=== PATIENT | female | born 1975 | race Caucasian/White ===

== ENCOUNTER 2022-03-31 06:45 | Observation (INO) ==
--- NOTE | 2022-03-29 08:51 | Anesthesiology Consultation ---
Date of Service March 29, 2022 Assessment & Plan (1) Encounter for pre-operative examination: - COVID screening: Per assessment on 03/28: No known COVID-19 positive contacts or current COVID-19 related symptoms. Travel screen negative. Patient vaccinated. At surgeon discretion if preop Covid testing being done. - Check test AM DOS - Preop labs: No recent BMP. Will order BMP AM DOS. Chart Review Chart Review: Acceptable Risk for Surgery and Patient NOT seen in Pre Admission Testing History Surgery Operation Date: 03/31/22 08:20 Proposed Procedures p Total Laparoscopic Hysterectomy, Right Salpingectomy - Ronaldo Velasquez MD Height/Weight Height: 5 ft Weight: 72.575 kg Allergies Allergy/AdvReac Type Severity Reaction Status Date / Time No Known Allergies Allergy Verified 04/09/16 22:18 Medications Home Medications Medication Instructions Recorded Confirmed Last Taken levothyroxine 125 mcg tablet 125 mcg PO QAM 03/28/22 03/28/22 Unknown lisinopril 5 mg tablet 5 mg PO QAM 03/28/22 03/28/22 Unknown Past Medical History Medical History (Updated 03/29/22 @ 08:49 by Kristy Pedroza) Endometriosis History of anemia History of COVID-19 04/2021>RESOLVED Hypertension Hypothyroidism Tubal HX Past Family History Family History (Updated 03/28/22 @ 12:16 by Hansa Ramirez RN) Other No family history of adverse response to anesthesia Past Surgical History Surgical History (Updated 03/28/22 @ 12:16 by Hansa Ramirez RN) History of bilateral tubal ligation History of section X 3 History of dilatation and curettage History of laparoscopy MULTIPLE History of left salpingo-oophorectomy [place] teeth removed Social History Smoking Status: Never smoker Hx Alcohol Use: Yes alcohol intake frequency: holidays/special occasions only substance use type: does not use Testing Laboratory Results 03/28/22 WBC 8.45 H/H 13.8/43.3 PLATELETS 298
[~2022-03-31 06:45] MED LIST: LACTATED RINGER'S 1,000 ML IV SCH; ceFAZolin 2000MG 2,000 MG/15 ML SYR IV SCH
[2022-03-31] MEDS ORDERED: NEOSTIGMINE METHYLSULFATE 1 MG/ML 10ML VIAL ONE (07:15)
[2022-03-31] MEDS ORDERED: DEXAMETHASONE SOD INJ 4 MG/ML VIAL ONE (07:15)
[2022-03-31] MEDS ORDERED: PROPOFOL IV EMULSION 10 MG/ML 20 ML VIAL IV ONE (07:15)
[2022-03-31] MEDS ORDERED: LIDOCAINE 2% MPF LOCAL 5 ML VIAL INFIL ONE (07:15)
[2022-03-31] MEDS ORDERED: ROCURONIUM BROMIDE 10 MG/ML 5 ML VIAL IV ONE (07:15)
[2022-03-31] MEDS ORDERED: fentaNYL citrate 100 MCG/2 ML VIAL ONE (07:15)
[2022-03-31] MEDS ORDERED: KETOROLAC 30 MG/ML VIAL ONE (07:15)
[2022-03-31] MEDS ORDERED: MIDAZOLAM HCL 1 MG/ML 2ML VIAL ONE (07:15)
[2022-03-31] MEDS ORDERED: GLYCOPYRROLATE 0.2 MG/ML VIAL ONE (07:15)
[2022-03-31] MEDS ORDERED: ACETAMINOPHEN 1000 MG/100 ML IV IV ONE (07:50)
[2022-03-31] MEDS ORDERED: ATROPINE SULFATE 0.1 MG/ML 10ML SYR IV PRN (08:02)
[2022-03-31] MEDS ORDERED: ePHEDrine sulfate 50 MG/ML AMP IV PRN (08:02)
[2022-03-31] MEDS ORDERED: PROMETHAZINE HCL 6.25 MG in SODIUM CHLORIDE 0.9% 50 ML IV PRN (08:02)
[2022-03-31] MEDS ORDERED: ONDANSETRON INJ 2 MG/ML 2 ML VIAL IV PRN ×2 (08:02→11:44)
[2022-03-31 08:05] LABS: BUN Creatinine Ratio 13.8 (10-20); Calcium 8.3 mg/dl (8.5-10.1); Creatinine Clr Calc Pharmacy 98.6 ml/min; Est GFR (African American) 124.3 ml/min; Est GFR (Non-African American) 107.2 ml/min; Potassium 3.8 mmol/L (3.5-5.1)
[2022-03-31] MEDS ORDERED: BUPIVACAINE 0.5 % 5 MG/1 ML MPF 30ML VIAL ONE (08:05)
--- NOTE | 2022-03-31 08:14 | History & Physical Bridge Note ---
Date of Service March 31, 2022 History & Physical Bridge Note I have examined the patient, reviewed the History & Physical and in the interval since the performance of the History & Physical I have noted the following changes of clinical significance: no changes noted
[2022-03-31] MEDS ORDERED: TISSEEL FIBRIN SEALANT 10ML TOP ONE (09:29)
[2022-03-31] MEDS ORDERED: METHYLENE BLUE 0.5% 10 ML VIAL ONE (10:27)
[2022-03-31] MEDS: fentaNYL citrate 100 MCG/2 ML VIAL IV PRN ×4 (11:25→11:43)
[2022-03-31] MEDS ORDERED: MAGNESIUM HYDROXIDE SUSP 30 ML UDC PO PRN (11:44)
[2022-03-31] MEDS ORDERED: ACETAMINOPHEN 325 MG TAB PO PRN (11:44)
[2022-03-31] MEDS ORDERED: PROMETHAZINE HCL 25 MG in SODIUM CHLORIDE 0.9% 50 ML IV PRN (11:44)
[2022-03-31] MEDS ORDERED: PROMETHAZINE HCL 12.5 MG in SODIUM CHLORIDE 0.9% 50 ML IV PRN (11:44)
[2022-03-31] MEDS ORDERED: ZOLPIDEM TARTRATE 5 MG TAB PO PRN (11:44)
--- NOTE | 2022-03-31 11:44 | Post Operative Brief Note ---
Immediate Post Op Note v1 Date of Surgery March 31, 2022 Pre & Post Diagnosis Operation Date: 03/31/22 08:20 Pre-Op Diagnosis: Post Ablation Syndrome, Chronic Pelvic Pain Post-Op Diagnosis: Post Ablation Syndrome, Chronic Pelvic Pain I identified the patient and participated in the time-out.: Yes Procedure Operation Date: 03/31/22 08:20 Actual Procedures p Total Laparoscopic Hysterectomy, Right Salpingectomy, Cystoscopy, (Not Applicable) - Ronaldo Velasquez MD Surgeon Ronaldo Velasquez MD Strategic Planning Manager [employer] Estimated Blood Loss 50 Findings Consistent with Post-Op Diagnosis Drains Martinez Catheter (Inserted at beginning of case by surgeon)
[2022-03-31] MEDS ORDERED: HYDROmorphone INJ 2 MG/ML SYR/VIAL IV PRN (11:54)
[2022-03-31] MEDS: HYDROmorphone INJ 0.5 MG/0.5 ML SYR ONE ×2 (11:58→12:24)
[2022-03-31] MEDS ORDERED: PROMETHAZINE HCL INJ 25 MG/ML 1 ML VIAL ONE (12:14)
[2022-03-31] MEDS ORDERED: SODIUM CHLORIDE 0.9% 50 ML BAG ONE (12:14)
--- NOTE | 2022-03-31 12:39 | Anesthesiology Progress Note ---
Date of Service March 31, 2022 Anesthesia Post Procedure Vital Signs Vital Signs: Temp Pulse Resp BP BP Pulse Ox O2 Del Method 03/31/22 12:30 85 16 110/72 95 Room Air 03/31/22 12:20 97.5 F L 84 16 107/70 95 Room Air 03/31/22 12:10 90 18 102/69 100 Nasal Cannula 03/31/22 11:40 84 20 121/81 100 Nasal Cannula 03/31/22 11:30 86 16 119/81 100 Nasal Cannula 03/31/22 12:00 78 18 110/73 100 Nasal Cannula 03/31/22 11:50 75 20 106/73 100 Nasal Cannula 03/31/22 11:20 102 H 16 111/74 100 Nasal Cannula 03/31/22 11:18 97.5 F L 92 H 14 112/78 100 Nasal Cannula 03/31/22 07:23 98.1 F 84 20 114/88 97 Room Air O2 Flow Rate 03/31/22 12:30 03/31/22 12:20 03/31/22 12:10 2 03/31/22 11:40 2 03/31/22 11:30 2 03/31/22 12:00 2 03/31/22 11:50 2 03/31/22 11:20 2 03/31/22 11:18 2 03/31/22 07:23 Pain Intensity Abdomen: Pain Intensity: 8 Transfer of Care Handoff Completed per policy Notes Mental Status: alert / awake / arousable and participated in evaluation Patient Amnestic to Procedure: Yes Nausea / Vomiting: improving with treatment Pain: adequately controlled and improving with treatment Airway Patency, RR, SpO2: stable & adequate BP & HR: stable & adequate Hydration State: stable & adequate Anesthetic Complications: no major complications apparent and Pt Satisfied with anesthetic care
--- NOTE | 2022-03-31 12:44 | Operative Report (OR) ---
DATE OF SURGERY: 03/31/2022. INDICATION FOR SURGERY: This is a 46-year-old status post endometrial ablation. The patient has had improvement of bleeding since ablation, but has been experiencing post-ablation syndrome. The patie nt is therefore scheduled for a hysterectomy. PREOPERATIVE DIAGNOSIS: Post-endometrial ablation syndrome. POSTOPERATIVE DIAGNOSIS: Post-endometrial ablation syndrome. PROCEDURE: 1. Total laparoscopic hysterectomy. 2. Right ovarian cystectomy. 3. Endometriosis. 4. Right salpingectomy. 5. Lysis of adhesion. SURGEON: Ronaldo Velasquez MD WOMEN NURSE: GABRIELA Betancourt ATTESTATION FOR WOMEN NURSE: Landscape Supervisor was necessary in order to help with manipulation and retraction in order to provide a safe surgery. ESTIMATED BLOOD LOSS: 50 mL. INTRAVENOUS FLUIDS: 700 mL. URINE OUTPUT: 100 mL of clear urine at the end of procedure. SPECIMENS: 1. Uterus and cervix. 2. Ovarian cyst wall. 3. Right fallopian tube. INTRAOPERATIVE COMPLICATIONS: None. PATIENT CONDITION: Stable. DISPOSITION: Postanesthesia care unit. ATTESTATION: I performed the entire procedure. FINDINGS: Normal female escutcheon. No lesions in the vagina or cervix. Laparoscopic findings show ed a 12-week size uterus. There was endometriosis and an endometrioma attached to the right adnexa. There was extensive adhesion of the omentum to the anterior abdominal wall from prior surgeries. DESCRIPTION OF PROCEDURE: The patient was taken to the operating room where she was prepped and drap ed in normal sterile fashion in dorsal lithotomy position. Martinez catheter was placed. Findings of t he vagina is as dictated above. A weighted speculum was placed in the vagina. A uterine manipulator was placed into the uterus after the uterus was dilated. The manipulator was sutured in place with silk suture. Attention was paid to the abdominal part of the procedure where a supraumbilical incision was made wi th a scalpel and carried down to the fascia. Fascia was grabbed with Kochers. A Veress needle was i ntroduced into the abdomen at a 45-degree angle while tenting up the abdomen. Intraabdominal placeme nt was confirmed with a water-filled syringe. Water drop and suction test was performed. The abdome n was insufflated with 4 L of CO2 gas. The Veress needle was removed and a nonbladed trocar attached to a laparoscope was introduced into the abdomen. This was a 5 mm trocar. This was done under dire ct visualization and once inside the abdomen, the findings were as dictated above. The patient was p laced in Trendelenburg position and three more accessory ports were placed, all under direct visualiz ation. On the left was a 10 and a 5 mm trocar, on the right was another 5 mm trocar. A general exam ination of the pelvis including the abdominal wall adhesions in the uterus, the right fallopian tube, the endometrioma attached to the right ovary were all identified. The ureters on both sides identif ied as well as the uterosacrals. The bowels and cecum were identified. LigaSure was passed through the right contralateral port and dissection of the omentum to the abdominal wall was performed withou t difficulty. There was some dissection in the posterior cul-de-sac, all of which I also carefully p erformed. Because the patient had had previous section, her left ovary and fallopian tubes were absent . The LigaSure was passed through the right port and the right fallopian tube identified and grabbed 4 cm from the cornua of the uterus with the LigaSure and transected. This was followed by opening o f the right anterior leaf of the broad ligament. This allowed for fenestration of the posterior righ t broad ligament. Mid section of the right fallopian tube, utero-ovarian ligament, and meso-ovarian pedicles were transected. On the left side, the tube and ovary were absent. The bladder dissection was started on that side. This was done with a [place] and Harmonic scalpel. The anterior broad li gament dissection was carried to the mid-section of the vesicouterine peritoneum over the bladder usi ng Harmonic scalpel. This was done on both sides posteriorly. Ligament was carefully dissected also from both sides using the uterosacral arch in order to displace the ureters laterally. Using tracti on and countertraction, the [place] retractor and irrigation probe was used to further dissect the b ladder off the lower segment of the uterus. Bladder pillars and pubovesical fascia were dissected as well. Harmonic scalpel was used to obtain hemostasis when needed. Uterine manipulator was now palpated over the vaginal tissue. The right uterine pedicles were skelet onized and coagulated with the LigaSure. There was good hemostasis. Same procedure was performed in the contralateral side. The cardinal ligaments were transected on both sides. Once again, good hem ostasis was obtained and a colpotomy was performed using the LigaSure hook from both sides. The uter us was removed through the vagina while still attached to the uterine manipulator. The bulb attached to the uterine manipulator was reinserted into the vagina to establish pneumoperitoneum. With a grasper, the remaining section of the right fallopian tube was positioned anteromedially and s alpingectomy was performed. The ovary was attached to a cyst that was chocolate filled. This was in cised with the Harmonic scalpel and the chocolate cyst drained. The section of the cyst was transect ed off the ovary and sent to pathology as well. Copious amount of irrigation was used to irrigate the abdomen. There was good hemostasis. EndoStitc h closure device was passed through the 10 mm port on the left and using the [place] grasper for tra ction, the colpotomy closure was performed. The uterosacral ligaments were incorporated into the keira sure in order to decrease the risk of prolapse. Lapra-Tys were used with the EndoStitch. Cystoscopy was performed. A cystoscope was placed into the bladder. Once in the bladder, an air arlene ble could be seen anteriorly. Both ureteral orifices could be seen. Urine was seen jetting through t he ureteral orifices without any difficulty. There were no sutures or lesions or masses seen in the bladder. The scope was removed. The incision sites from the abdomen were all closed. The 10 mm incision site was closed with a needl e passer in order to close the fascia. This was done under direct visualization. The three other in cisions were approximated using Dermabond. The skin closure on the 10 mm incision was closed with De rmabond as well. All instruments were removed from the abdomen and the vagina and accounted for x2 including sponges, needles, and retractors. The patient was sent to recovery in stable condition. Job ID: [id number]
[2022-03-31] MEDS: SIMETHICONE 80 MG CHEW PO PRN ×2 (14:18→21:38)
[2022-03-31] MEDS: IBUPROFEN 600 MG TAB PO PRN ×2 (15:37→19:38)
[2022-03-31] MEDS: oxyCODONE/ACETAMINOPHEN 5mg/325mg TAB PO PRN ×2 (17:34→21:38)
[2022-03-31] MEDS: LACTATED RINGER'S 1,000 ML IV SCH (17:38)
[2022-03-31 20:04] LABS: Hematocrit (blood only) 34.3 % (34.1-44.9)
[2022-03-31] MEDS: DOCUSATE SODIUM 100 MG CAP PO SCH (21:38)
[2022-04-01] MEDS: LACTATED RINGER'S 1,000 ML IV SCH (01:22)
[2022-04-01] MEDS: oxyCODONE/ACETAMINOPHEN 5mg/325mg TAB PO PRN ×3 (03:54→11:39)
[2022-04-01] MEDS: IBUPROFEN 600 MG TAB PO PRN ×3 (03:55→11:39)
[2022-04-01 06:34] LABS: Basophils # (auto) 0.03 K/uL (0-0.2); Basophils % (auto) 0.3 %; Eosinophils # (auto) 0.03 K/uL (0-0.50); Eosinophils % (auto) 0.3 %; Hematocrit (blood only) 31.3 % (34.1-44.9); Hemoglobin 10.7 g/dl (12.0-16.0); Immature Granulocytes # (auto) 0.04 K/uL (0.00-0.02); Immature Granulocytes % (auto) 0.4 %; Lymphocytes # (auto) 1.43 K/uL (1.2-3.4); Lymphocytes % (auto) 15.9 %; Mean Corpuscular Hemoglobin 30.8 pg (25.0-34.0); Mean Corpuscular Hgb Conc 34.2 g/dL (32.0-36.0); Mean Corpuscular Volume 90.2 fL (80.0-100.0); Mean Platelet Volume 10.8 fL (9.4-12.3); Monocytes # (auto) 0.66 K/uL (0.24-0.82); Monocytes % (auto) 7.3 %; Neutrophils # (auto) 6.81 K/uL (1.4-6.5); Neutrophils % (auto) 75.8 %; Platelet Count 198 K/uL (130-400); RDW Coefficient of Variation 12.2 % (11.5-14.5); RDW Standard Deviation 40.4 fL (36.4-46.3); Red Blood Count 3.47 M/uL (3.93-5.22)
[2022-04-01 07:03] LABS: BUN Creatinine Ratio 13.1 (10-20); Calcium 7.6 mg/dl (8.5-10.1); Creatinine Clr Calc Pharmacy 105.1 ml/min; Est GFR (African American) 126.9 ml/min; Est GFR (Non-African American) 109.5 ml/min; Potassium 3.5 mmol/L (3.5-5.1)
[2022-04-01] MEDS: DOCUSATE SODIUM 100 MG CAP PO SCH (08:08)
--- NOTE | 2022-04-01 10:22 | Obstetrical Progress Note ---
Date of Service April 01, 2022 Assessment & Plan (1) Postop check: POD #1 Pt doing well No complaints d/c home with instrcutions Subjective Review of Systems All systems reviewed & are unremarkable except as noted in HPI & below Physical Exam Constitutional WD/WN, vitals as above Eyes PERRL, conjunctivae normal, anicteric sclerae ENMT external ear and nose normal, oropharynx normal Neck trachea midline, no thyromegaly Respiratory normal respiratory effort, lungs clear to auscultation Cardiovascular RRR, no murmur, no edema Chest (Breasts) normal inspection/palpation of breasts Gastrointestinal (Abdomen) normal bowel sounds, soft, nontender, no hepatosplenomegaly Musculoskeletal no cyanosis or clubbing, extremities motor strength 5/5 Skin + incision (Incision clean,dry and intact) Neurologic patellar DTR's 2+ bilat, sensation intact Psychiatric A+Ox3, euthymic affect Genitourinary no vaginal lesions, no adnexal mass Lymphatic no cervical or axillary lymphadenopathy Results & Data ([facility]) Vital Signs (Past 12 Hours) Vital Signs Temp Pulse Resp BP Pulse Ox O2 Del Method 04/01/22 08:00 36.4 C L 79 18 105/81 96 Room Air 04/01/22 08:00 Room Air 04/01/22 03:06 36.9 C 72 16 115/83 98 Room Air 03/31/22 22:57 36.9 C 80 18 111/81 97 Room Air
--- NOTE | 2022-04-01 15:40 | Discharge Summary (DS) ---
DATE OF ADMISSION: 03/31/2022. DATE OF DISCHARGE: 04/01/2022. HISTORY OF PRESENT ILLNESS: This is a 46-year-old status post laparoscopic hysterectomy on 2. The patient's surgery was unremarkable. Details of surgery is in the surgical note. The patient had hysterectomy for post-endometrial ablation syndrome. The patient stayed overnight for observati on. This morning, patient is doing well and has been discharged home in stable condition. PAST MEDICAL HISTORY: History of endometriosis, anemia, hypertension, hypothyroidism, and a tubal pr egnancy. PAST SURGICAL HISTORY: History of bilateral tubal ligation, section, D and C, laparoscopy, endometrial ablation and a left salpingo-oophorectomy. ALLERGIES: No known drug allergies. SOCIAL HISTORY: The patient denies tobacco, drug or alcohol use. FAMILY HISTORY: Noncontributory. REVIEW OF SYSTEMS: Negative unless dictated in the HPI. PHYSICAL EXAMINATION: VITAL SIGNS: Blood pressure 105/81, pulse 79, respirations 18, temperature 36.4. HEART: S1 and S2, regular rhythm and rate. LUNGS: Clear to auscultation bilaterally. ABDOMEN: Nontender, nondistended, positive bowel sounds. Incision clean, dry and intact. EXTREMITIES: No cyanosis, clubbing or edema. CONDITION ON DISCHARGE: Stable. OPERATIONS: 1. Total laparoscopic hysterectomy. 2. Right salpingectomy. 3. Right ovarian cystectomy. 4. Lysis of adhesions. 5. Cystoscopy. DISCHARGE DIAGNOSIS: Stable. PLAN ON DISCHARGE: The patient is discharged home with instructions regarding activity, diet, and fo [facility] appointment. Job ID: [id number]
== END 2022-04-01 12:05 | disposition home or self-care (01) ==
LOC: 4E1 06:45 → ASU 06:45